=== PATIENT | male | born 1940 | race Caucasian/White ===

== ENCOUNTER 2019-04-02 07:16 | Inpatient (IN) | payer MEDICARE, OTHER ==
[~2019-04-02] VITALS: Ht 175.3 cm; Wt 86.2 kg
[~2019-04-02 07:16] MED LIST: ALBU8.5H8 IH; ALD50T PO; ASPI-611 PO; BENA40TA73 PO; CLOP75TA15 PO; GLUC1CAP7 PO; MULT-1179 PO; PRAV20TA4 PO; [UNRECOGNIZED DRUG - CODE] PO; ceFAZolin 2gm in dextrose, iso 100 ML IV ONE; famotidine 20mg tablet PO ONE; ringers solution, lacted 1,000 ML IV SCH
[2019-04-02] MEDS ORDERED: nitroPRUSSIDE SODIUM in NS 100 ML IV PRN (07:50)
[2019-04-02] MEDS ORDERED: phenylephrine inj 10 MG in normal saline 250ml IV soln 250 ML IV PRN (07:50)
[2019-04-02 08:00] VITALS: BP 141/93
[2019-04-02 08:50] LABS: BASOPHILS # (AUTO) 0.1 X10'3 (0-0.2); BASOPHILS % (AUTO) 2.1 % (0-1); EOSINOPHILS % (AUTO) 1.4 % (0-6); LYMPHOCYTES # (AUTO) 0.9 X10'3 (1.1-4.8); LYMPHOCYTES % (AUTO) 37.5 % (21-51); MEAN CORPUSCULAR HEMOGLOBIN 30.4 PG (27.0-31.0); MEAN CORPUSCULAR HGB CONC 33.1 g/dL (33.0-36.5); MEAN CORPUSCULAR VOLUME 91.9 FL (78-98); MEAN PLATELET VOLUME 8.4 FL (7.4-10.4); MONOCYTES # (AUTO) 0.6 X10'3 (0-0.9); MONOCYTES % (AUTO) 23.8 % (2-12); NEUTROPHILS # (AUTO) 0.8 X10'3 (1.8-7.7); NEUTROPHILS % (AUTO) 35.2 % (42-75); PRE OP HEMATOCRIT 40.4 % (42.0-52.0); PRE OP HEMOGLOBIN 13.4 g/dL (14.0-17.9); PRE OP PLATELET COUNT 227 X10'3 (140-440); RED CELL DISTRIBUTION WIDTH 15.4 % (11.5-14.5)
[2019-04-02 09:11] LABS: PRE OP PROTIME 10.3 SECONDS (9.0-12.0)
[2019-04-02 09:13] LABS: ALBUMIN 4.1 G/DL (3.4-5.0); ALBUMIN/GLOBULIN RATIO 1.1 (1.1-1.5); ALKALINE PHOSPHATASE 44 IU/L (46-116); BLOOD UREA NITROGEN 13 MG/DL (7-18); BUN/CREATININE RATIO 14.6 (5.4-32.0); CALCIUM 9.2 MG/DL (8.5-10.1); CHLORIDE 97 MMOL/L (99-107); CREATININE 0.89 MG/DL (0.60-1.10); PRE OP ALT 27 U/L (30-65); PRE OP ANION GAP 9 (8-16); PRE OP AST 23 U/L (10-37); PRE OP BILIRUB, TOTAL 0.7 MG/DL (0.0-1.0); PRE OP GLUCOSE 117 MG/DL (70-104); PRE OP POTASSIUM 4.7 MMOL/L (3.4-5.1); PRE OP SODIUM 131 MMOL/L (135-145); TOTAL CARBON DIOXIDE 25.5 MMOL/L (24-32); TOTAL PROTEIN 7.9 G/DL (6.4-8.2); eGFR 83 ML/MIN
--- NOTE | 2019-04-02 09:35 | NUR ---
(0900) DR LOPEZ AWARE OF ABNORMAL WBC/NA FROM 0830 LAB DRAW. SPOKE WITH PT, AND DAUGHTERS REGARDING F/U WITH ONCOLOGIST THIS WEEK. SURGERY CX R/T CURRENT LABS. LABS FAXED TO DR MARTINEZ INSTRUCTED. (934) IV DC'D WITH CANNULA INTACT AND DSG APPLIED. PT INSTRUCTED TO RESTART PLAVIX AND ALL HOME MEDS PER DR LOPEZ. PT DC'D HOME WITH AND FAMILY PRESENT TO PRIVATE CAR, ALL BELONGINGS RETURNED TO PT.
[2019-04-02 10:03] LABS: PLATELET ESTIMATE NORMAL; TOTAL CELLS COUNTED 100
== END 2019-04-02 09:35 | disposition home or self-care (01) | DRG 68 ==
LOC: PAS IN 07:16 → EDSTATUS 12:00
PROVIDERS: ADMIT Surgery; ATTEND Surgery
DX: I65.23 Occlusion and stenosis of bilateral carotid arteries (principal); J45.909 Unspecified asthma, uncomplicated; M19.90 Unspecified osteoarthritis, unspecified site; F17.210 Nicotine dependence, cigarettes, uncomplicated; I10 Essential (primary) hypertension; Z82.5 Family history of asthma and other chronic lower respiratory diseases
CPT/HCPCS: 36415; 80053; 85025; 85610; 85730; 86885; 86900; 86901; 86920; 87070; J0690; J2370; J7030; J7120

== ENCOUNTER 2020-05-13 12:10 | Outpatient (CLI) | payer MEDICARE, OTHER ==
[~2020-05-13 12:10] MED LIST changes: -ALD50T PO; +AMIO200T27 PO; +APIX5TAB5 PO; -ASPI-611 PO; -CLOP75TA15 PO; +FERR325T28 PO; +IPRA3AMP9 NEB; +OMEG-143 PO; +OMEP20TA23 PO; +ZINC220C12 PO; -[UNRECOGNIZED DRUG - CODE] PO; -ceFAZolin 2gm in dextrose, iso 100 ML IV ONE; -famotidine 20mg tablet PO ONE; -ringers solution, lacted 1,000 ML IV SCH
[2020-05-13 12:42] LABS: BASOPHILS # (AUTO) 0.1 X10'3 (0-0.2); BASOPHILS % (AUTO) 1.2 % (0-1); EOSINOPHILS # (AUTO) 0.1 X10'3 (0-0.9); EOSINOPHILS % (AUTO) 2.1 % (0-6); HEMATOCRIT 35.2 % (42.0-52.0); HEMOGLOBIN 11.6 g/dl (14.0-17.9); LYMPHOCYTES # (AUTO) 1.2 X10'3 (1.1-4.8); LYMPHOCYTES % (AUTO) 19.1 % (21-51); MEAN CORPUSCULAR HEMOGLOBIN 29.2 PG (27.0-31.0); MEAN CORPUSCULAR HGB CONC 33.1 g/dL (33.0-36.5); MEAN CORPUSCULAR VOLUME 88.2 FL (78-98); MEAN PLATELET VOLUME 8.2 FL (7.4-10.4); MONOCYTES # (AUTO) 1.2 X10'3 (0-0.9); MONOCYTES % (AUTO) 18.8 % (2-12); NEUTROPHILS # (AUTO) 3.8 X10'3 (1.8-7.7); NEUTROPHILS % (AUTO) 58.8 % (42-75); PLATELET COUNT 292 X10'3 (140-440); RED BLOOD COUNT 3.99 X10'6 (4.70-6.10); RED CELL DISTRIBUTION WIDTH 14.8 % (11.5-14.5); WHITE BLOOD COUNT 6.5 X10'3 (4.5-11.0)
[2020-05-13 12:55] LABS: ALANINE AMINOTRANSFERASE 43 U/L (12-78); ALBUMIN 4.2 G/DL (3.4-5.0); ALBUMIN/GLOBULIN RATIO 1.1 (1.1-1.5); ALKALINE PHOSPHATASE 62 IU/L (46-116); ANION GAP 9 (8-16); ASPARTATE AMINO TRANSFERASE 31 U/L (10-37); BILIRUBIN,TOTAL 0.8 MG/DL (0.1-1.0); BLOOD UREA NITROGEN 22 MG/DL (7-18); BUN/CREATININE RATIO 17.3 (5.4-32.0); CALCIUM 9.2 MG/DL (8.5-10.1); CHLORIDE 98 MMOL/L (99-107); CREATININE 1.27 MG/DL (0.60-1.10); GLUCOSE 103 MG/DL (70-104); POTASSIUM 4.6 MMOL/L (3.5-5.1); SODIUM 134 MMOL/L (135-145); TOTAL CARBON DIOXIDE 27.2 MMOL/L (24-32); eGFR 55 ML/MIN
[2020-05-14] MEDS ORDERED: HYDR12.55 PO (11:35)
[2020-05-14] MEDS ORDERED: SPIR50TA5 PO (11:35)
== END 2020-05-13 23:59 | disposition home or self-care (01) ==
LOC: LAB 12:10
PROVIDERS: ATTEND Surgery
DX: Z01.818 Encounter for other preprocedural examination (principal); I65.21 Occlusion and stenosis of right carotid artery; Z11.59 Encounter for screening for other viral diseases
CPT/HCPCS: 36415; 80053; 85025; U0003

== ENCOUNTER 2020-11-29 15:11 | Inpatient (IN) | payer MEDICARE, OTHER ==
[2020-11-29] VITALS (11 sets, daily range): BP systolic 130–247; BP diastolic 36–84
[~2020-11-29] VITALS: Ht 175.3 cm; Wt 93.8 kg
[~2020-11-29 15:11] MED LIST changes: +DILT240C90 PO; -FERR325T28 PO; +HYDR12.55 PO; +SPIR50TA5 PO
[2020-11-29] MEDS ORDERED: diphenhydrAMINE 25mg capsule PO PRN (16:00)
[2020-11-29] MEDS ORDERED: LORazepam 0.5 MG tablet PO PRN (16:00)
--- NOTE | 2020-11-29 16:20 | NUR ---
DR CYNDY VICTORIA, REPORTED PT'S ELEVATED BP 220'S/70'S & 80'S, HYDRALAZINE ORDERED. Addendum: 11/29/20 at 1936 by Melissa Ruth RN Amended: Links added.
[2020-11-29] MEDS ORDERED: hydrALAZINE 20mg/ml inj. IV ONE (16:45)
[2020-11-29] MEDS: normal saline 1,000 ML IV SCH (17:06)
[2020-11-29] MEDS ORDERED: BENA40TA73 PO (18:01)
[2020-11-29] MEDS ORDERED: FERR-119 PO (18:07)
[2020-11-29] MEDS ORDERED: CLOP75TA15 PO (18:08)
[2020-11-29] MEDS ORDERED: ALBU18HF2 INH (18:09)
[2020-11-29] MEDS ORDERED: LIDOcaine 1% (10mg/ml)w/preservative injection 20ml MDV ONE ×2 (20:27→20:54)
[2020-11-29] MEDS ORDERED: iohexol 350 MG/1 ML 200ml bottle ONE (20:27)
[2020-11-29] MEDS ORDERED: DOPamine 400mg/D5W 250ml 250 ML IV ONE (20:27)
[2020-11-29] MEDS ORDERED: atropine 0.1mg/ml 10ml syringe ONE (20:27)
[2020-11-29] MEDS ORDERED: heparin 1,000unit/ml 10ml vial 10 ML ONE (20:27)
[2020-11-29] MEDS ORDERED: fentaNYL/PF 50MCG/1 ML 2ML syringe ONE (20:54)
[2020-11-29] MEDS ORDERED: midazolam 2 mg/2 ml injection ONE (20:54)
[2020-11-29] MEDS ORDERED: clopidogrel 300mg tablet ONE (21:31)
[2020-11-29] MEDS ORDERED: hydrALAZINE 20mg/ml inj. IV PRN (23:00)
[2020-11-29] MEDS ORDERED: DOPamine 400mg/D5W 250ml 250 ML IV SCH (23:00)
[2020-11-29] MEDS ORDERED: pseudoephedrine 30mg tablet PO PRN (23:00)
[2020-11-29] MEDS ORDERED: HYDROcodone/acetaminophen 10/325mg tab PO PRN (23:00)
[2020-11-29] MEDS ORDERED: OXAZEpam 15mg capsule PO PRN (23:00)
[2020-11-29] MEDS ORDERED: HYDROcodone/acetaminophen 5mg/325mg tablet PO PRN (23:00)
[2020-11-29] MEDS ORDERED: albuterol 2.5 MG/3 ML nebule NEB PRN (23:10)
[2020-11-29 23:33] LABS: HEMOGLOBIN 11.9 g/dl (14.0-17.9); RED BLOOD COUNT 3.66 X10'6 (4.70-6.10)
[2020-11-29 23:35] LABS: BASOPHILS # (AUTO) 0.1 X10'3 (0-0.2); BASOPHILS % (AUTO) 0.8 % (0-1); EOSINOPHILS # (AUTO) 0.1 X10'3 (0-0.9); EOSINOPHILS % (AUTO) 1.3 % (0-6); HEMATOCRIT 35.8 % (42.0-52.0); LYMPHOCYTES # (AUTO) 1.3 X10'3 (1.1-4.8); LYMPHOCYTES % (AUTO) 15.8 % (21-51); MEAN CORPUSCULAR HEMOGLOBIN 32.5 PG (27.0-31.0); MEAN CORPUSCULAR HGB CONC 33.2 g/dL (33.0-36.5); MEAN CORPUSCULAR VOLUME 97.7 FL (78-98); MEAN PLATELET VOLUME 8.8 FL (7.4-10.4); MONOCYTES # (AUTO) 0.9 X10'3 (0-0.9); MONOCYTES % (AUTO) 10.9 % (2-12); NEUTROPHILS # (AUTO) 5.7 X10'3 (1.8-7.7); NEUTROPHILS % (AUTO) 71.2 % (42-75); PLATELET COUNT 209 X10'3 (140-440)
--- NOTE | 2020-11-29 23:39 | NUR ---
Small area of blood on gauze to right groin minx closure has enlarged very slightly and closure remains soft without induration. 5 lb sand bag placed on site. Addendum: 11/29/20 at 2343 by Rishi Nix RN Amended: Links added.
[2020-11-29 23:40] LABS: ALBUMIN 3.4 G/DL (3.4-5.0); ANION GAP 6 (8-16); BLOOD UREA NITROGEN 17 MG/DL (7-18); BUN/CREATININE RATIO 17.7 (5.4-32.0); CALCIUM 8.7 MG/DL (8.5-10.1); CHLORIDE 102 MMOL/L (99-107); CREATININE 0.96 MG/DL (0.60-1.10); GLUCOSE 107 MG/DL (70-104); SODIUM 136 MMOL/L (135-145); TOTAL CARBON DIOXIDE 27.6 MMOL/L (24-32); eGFR 76 ML/MIN
[2020-11-30] VITALS (7 sets, daily range): BP systolic 145–182; BP diastolic 50–85
[2020-11-30 00:48] LABS: CHOL/HDL RATIO 2.5 (0.00-4.99); CHOLESTEROL 151 MG/DL (0-200); HDL CHOLESTEROL 60 MG/DL (35-60); LDL CHOLESTEROL 86 MG/DL (50-100); TRIGLYCERIDES 23 MG/DL (20-135)
[2020-11-30] MEDS: normal saline 1,000 ML IV SCH (02:26)
--- NOTE | 2020-11-30 06:22 | NUR ---
Problems reprioritized. Patient report given, questions answered & plan of care reviewed with SULEIMAN. Addendum: 11/30/20 at 0622 by Rishi Nix RN Amended: Links added.
--- NOTE | 2020-11-30 06:30 | NUR ---
Patient in room MED 309. I have received report from Trung ROSALES and had the opportunity to ask questions and assume patient care.
[2020-11-30] MEDS ORDERED: pantoprazole 40mg Tablet.DR PO SCH (07:30)
[2020-11-30] MEDS ORDERED: clopidogrel 75mg tablet PO SCH (08:00)
[2020-11-30] MEDS ORDERED: atorvastatin 10mg tablet PO SCH (08:00)
[2020-11-30] MEDS ORDERED: lisinopril 20mg tablet PO SCH (08:00)
[2020-11-30] MEDS ORDERED: ferrous sulfate 325mg tablet PO SCH (08:00)
[2020-11-30] MEDS ORDERED: apixaban 5mg tablet PO SCH (08:00)
[2020-11-30] MEDS ORDERED: OMEGA-3/DHA/EPA/FISH OIL 1 EACH CAPSULE.DR PO SCH (08:00)
[2020-11-30] MEDS ORDERED: multivitamins, therapeutics tablet PO SCH (08:00)
[2020-11-30] MEDS ORDERED: amiodarone 200mg tablet PO SCH (08:00)
--- NOTE | 2020-11-30 08:15 | NUR ---
Received call from Dr. Rice. He stated it was okay to discharge the patient home and resume all home medications.
--- NOTE | 2020-11-30 09:38 | NUR ---
Patient discharged home in stable condition. IVs removed, cannulas intact. Vital signs stable. No hematoma, blood on dressing, but no more than outlined last night. All discharge instructions reviewed with no further questions. Patient taken downstairs via wheelchair with all belongings on person. Razor delivered by daughter picked up at front end developer.
--- NOTE | 2020-12-01 15:19 | NUR ---
CASE MANAGEMENT DISCHARGE FOLLOW UP: Spoke with pt's , Thomas, via telephone as pt is currently resting. She states that the pt has said that he has not pain at access site, states no bleeding, no swelling, no redness, no s/sx of infection. She says there is some bruising, but like his previous heart caths. She states that patient has some muscular pain in his side that started 4 days prior to admission to hospital and wants to know what medications pt can take for discomfort. Advised that they contact pt's PCP or Dr Rice's office for request, she verbalizes understanding. Verbalizes understanding of s/sx requiring further evaluation/emergent assistance. Thomas verbalizes compliance with MD discharge instructions.She verbalizes understanding of the importance in making/keeping follow-up appointments, states pt has an appointment in February but thinks Dr Rice probably wants to see him before then, she is trying to get him an earlier appointment. She states no further questions/concerns at this time.
== END 2020-11-30 09:25 | disposition home or self-care (01) | DRG 36 ==
LOC: SSTAY O 15:11 → MED 3N 21:55
PROVIDERS: ADMIT Internal Medicine Interventional Cardiology; ATTEND Internal Medicine Interventional Cardiology
PROC: 037K3DZ Dilation of Right Internal Carotid Artery with Intraluminal Device, Percutaneous Approach (ICD-10-PCS; principal; 2020-11-29)
DX: I65.23 Occlusion and stenosis of bilateral carotid arteries (principal); G47.33 Obstructive sleep apnea (adult) (pediatric); I10 Essential (primary) hypertension; E78.00 Pure hypercholesterolemia, unspecified; I48.91 Unspecified atrial fibrillation; C44.90 Unspecified malignant neoplasm of skin, unspecified
CPT/HCPCS: 36415; 37215; 80048; 80061; 85025; 85610; 87081; 93005; 99152; 99153; A4620; A6258; C1725; C1760; C1769; C1876; C1884; C1887; C1894; G0378; J0360; J0461; J1265; J1644; J2001; J2250; J3010; J7030; Q0163; Q9967

== ENCOUNTER 2021-09-02 15:48 | Emergency (ER) | payer MEDICARE, OTHER ==
[~2021-09-02] VITALS: Ht 175.3 cm; Wt 77.3 kg
[~2021-09-02 15:48] MED LIST changes: +ALBU18HF2 INH; -ALBU8.5H8 IH; +CLOP75TA15 PO; -DILT240C90 PO; +FERR-119 PO; -GLUC1CAP7 PO; -HYDR12.55 PO; -IPRA3AMP9 NEB; -SPIR50TA5 PO; -ZINC220C12 PO
[2021-09-02 15:55] VITALS: BP 173/63
[2021-09-02] MEDS ORDERED: normal saline 1000ML IV soln IVB ONE (15:55)
[2021-09-02 16:18] LABS: MEAN CORPUSCULAR HGB CONC 33.1 g/dL (33.0-36.5); RED BLOOD COUNT 3.54 X10'6 (4.70-6.10)
[2021-09-02 16:20] LABS: HEMATOCRIT 35.9 % (42.0-52.0); HEMOGLOBIN 11.9 g/dl (14.0-17.9); MEAN CORPUSCULAR HEMOGLOBIN 33.6 PG (27.0-31.0); MEAN CORPUSCULAR VOLUME 101.5 FL (78-98); MEAN PLATELET VOLUME 8.2 FL (7.4-10.4); PLATELET COUNT 481 X10'3 (140-440); RED CELL DISTRIBUTION WIDTH 14.4 % (11.5-14.5); WHITE BLOOD COUNT 7.6 X10'3 (4.5-11.0)
[2021-09-02 16:34] LABS: PARTIAL THROMBOPLASTIN TIME 29 SECONDS (22-32)
[2021-09-02 16:42] LABS: ALANINE AMINOTRANSFERASE 588 U/L (12-78); ALBUMIN 2.9 G/DL (3.4-5.0); ANION GAP 11 (8-16); ASPARTATE AMINO TRANSFERASE 666 U/L (10-37); BLOOD UREA NITROGEN 25 MG/DL (7-18); BUN/CREATININE RATIO 13.8 (5.4-32.0); CHLORIDE 93 MMOL/L (99-107); CREATININE 1.81 MG/DL (0.60-1.10); GLUCOSE 206 MG/DL (70-104); LIPASE 50 U/L (73-393); POTASSIUM 3.5 MMOL/L (3.5-5.1); SODIUM 130 MMOL/L (135-145); TOTAL CARBON DIOXIDE 26.3 MMOL/L (24-32); eGFR 36 ML/MIN
[2021-09-02 16:43] LABS: ALBUMIN/GLOBULIN RATIO 0.7 (1.1-1.5); ALKALINE PHOSPHATASE 1109 IU/L (46-116); TOTAL PROTEIN 7.1 G/DL (6.4-8.2)
[2021-09-02 17:14] LABS: PLATELET ESTIMATE INCREASED; TOTAL CELLS COUNTED 100
[2021-09-02 17:15] LABS: HYPERSEGMENTED NEUTROPHILS FEW; TARGET CELLS 3+
[2021-09-02] MEDS ORDERED: AMLO2.5T2 PO (18:49)
[2021-09-02 19:31] LABS: COLOR,URINE YELLOW (Yellow); UA COLLECTION TYPE NON-SPECIFIED
[2021-09-02 19:34] LABS: CLARITY,URINE SLIGHTLY CLOUDY (Clear)
[2021-09-02 19:35] LABS: BACTERIA,URINE FEW /HPF (Neg); GLUCOSE, URINE NEGATIVE (Neg); KETONES,URINE NEGATIVE (Neg); LEUKOCYTE ESTERASE ,URINE NEGATIVE (Neg); NITRITES, URINE NEGATIVE (Neg); OCCULT BLOOD,URINE NEGATIVE (Neg); PROTEIN,URINE NEGATIVE (Neg); RBC,URINE 0-2 /HPF (0-2); SQUAMOUS EPITHELIAL CELL,UR MODERATE /LPF (FEW); UROBILINOGEN,URINE 0.2 E.U/dL (0.2-1.0); WBC,URINE 0-4 /HPF (0-4)
[2021-09-02 19:36] LABS: CAL OXALATE CRYSTALS FEW /HPF (NEGATIVE)
[2021-09-04 13:08] LABS: CARCINOEMBRYONIC ANTIGEN 8.8 ng/mL (0.0-4.7)
== END 2021-09-02 20:57 | disposition home or self-care (01) ==
LOC: ER 15:49
DX: K86.9 Disease of pancreas, unspecified (principal); R16.0 Hepatomegaly, not elsewhere classified; E80.6 Other disorders of bilirubin metabolism; R10.32 Left lower quadrant pain; R53.1 Weakness; R11.0 Nausea; I10 Essential (primary) hypertension; J45.909 Unspecified asthma, uncomplicated; Z95.0 Presence of cardiac pacemaker; Z72.89 Other problems related to lifestyle; Z91.013 Allergy to seafood; Z79.899 Other long term (current) drug therapy
CPT/HCPCS: 36415; 71250; 74176; 76700; 80053; 81001; 82140; 82378; 83690; 84145; 85007; 85025; 85610; 85730; 86301; 99285; J7030

== ENCOUNTER 2021-09-07 11:37 | Day surgery (SDC) | payer MEDICARE, OTHER ==
[2021-09-07] VITALS (8 sets, daily range): BP systolic 139–199; BP diastolic 65–80
[~2021-09-07] VITALS: Ht 175.3 cm; Wt 77.3 kg
[~2021-09-07 11:37] MED LIST changes: +AMLO2.5T2 PO; -BENA40TA73 PO; -FERR-119 PO
[2021-09-07] MEDS ORDERED: fentaNYL/PF 50MCG/1 ML 2ML syringe ONE (11:57)
[2021-09-07] MEDS ORDERED: MIDAZolam 1 MG/ML 5ML VIAL ONE (11:57)
[2021-09-07] MEDS ORDERED: LIDOcaine Viscous 15ml cup ONE (11:58)
[2021-09-07] MEDS ORDERED: diphenhydrAMINE 50 mg/ml inj ONE (11:58)
[2021-09-07] MEDS ORDERED: levoFLOXACIN-Levaquin 500mg/D5 100 ML IV ONE (11:58)
[2021-09-07] MEDS ORDERED: glucagon, human recombinant 1mg kit ONE (11:59)
[2021-09-07] MEDS ORDERED: iohexol 300 MG/1 ML 50ml polymer ONE (11:59)
[2021-09-07 12:36] LABS: HEMATOCRIT 35.3 % (42.0-52.0); HEMOGLOBIN 11.4 g/dl (14.0-17.9); WHITE BLOOD COUNT 7.7 X10'3 (4.5-11.0)
[2021-09-07 12:38] LABS: MEAN CORPUSCULAR HGB CONC 32.1 g/dL (33.0-36.5); MEAN CORPUSCULAR VOLUME 102.6 FL (78-98); MEAN PLATELET VOLUME 8.3 FL (7.4-10.4); PLATELET COUNT 489 X10'3 (140-440); RED BLOOD COUNT 3.44 X10'6 (4.70-6.10); RED CELL DISTRIBUTION WIDTH 14.7 % (11.5-14.5)
[2021-09-07] MEDS ORDERED: BENA40TA45 PO (12:41)
[2021-09-07 13:09] LABS: ALANINE AMINOTRANSFERASE 521 U/L (12-78); ALBUMIN 2.6 G/DL (3.4-5.0); ANION GAP 13 (8-16); ASPARTATE AMINO TRANSFERASE 542 U/L (10-37); BILIRUBIN,TOTAL 10.4 MG/DL (0.1-1.0); BLOOD UREA NITROGEN 28 MG/DL (7-18); CALCIUM 9.3 MG/DL (8.5-10.1); CHLORIDE 98 MMOL/L (99-107); GLUCOSE 160 MG/DL (70-104); SODIUM 133 MMOL/L (135-145); TOTAL CARBON DIOXIDE 22.5 MMOL/L (24-32); eGFR 49 ML/MIN
[2021-09-07 13:10] LABS: ALBUMIN/GLOBULIN RATIO 0.6 (1.1-1.5); ALKALINE PHOSPHATASE 1127 IU/L (46-116); POTASSIUM 3.8 MMOL/L (3.5-5.1); TOTAL PROTEIN 6.8 G/DL (6.4-8.2)
[2021-09-07 13:13] LABS: TOTAL CELLS COUNTED 100
[2021-09-07 13:14] LABS: PLATELET ESTIMATE INCREASED; TARGET CELLS 2+
[2021-09-08] MEDS ORDERED: PER5325T PO (10:34)
== END 2021-09-07 15:17 | disposition home or self-care (01) ==
LOC: GI LAB 11:37
PROVIDERS: ATTEND Internal Medicine Gastroenterology
DX: K83.1 Obstruction of bile duct (principal); K83.8 Other specified diseases of biliary tract; I25.10 Atherosclerotic heart disease of native coronary artery without angina pectoris; I10 Essential (primary) hypertension; I48.91 Unspecified atrial fibrillation; Z98.52 Vasectomy status; Z91.018 Allergy to other foods; Z91.013 Allergy to seafood; Z20.822 Contact with and (suspected) exposure to COVID-19; Z79.899 Other long term (current) drug therapy; Z82.49 Family history of ischemic heart disease and other diseases of the circulatory system; Z83.6 Family history of other diseases of the respiratory system
CPT/HCPCS: 43274; 74328; 80053; 85025; 87635; 99153; C1769; C2625; C9803; G0500; J1200; J1610; J1956; J2250; J3010; J7040; Q9967; Z7512; Z7610; 43261; 43262; 85007; 99152; A4620

== ENCOUNTER 2021-09-08 10:21 | Emergency (ER) | payer MEDICARE, OTHER ==
[~2021-09-08] VITALS: Ht 175.3 cm; Wt 175.0 kg
[~2021-09-08 10:21] MED LIST changes: -AMLO2.5T2 PO; +BENA40TA45 PO
[2021-09-08 10:25] VITALS: BP 99/48
[2021-09-08] MEDS ORDERED: PER5325T PO (10:34)
[2021-09-08] MEDS ORDERED: oxyCODONE/APAP 5-325mg tablet PO ONE (10:35)
== END 2021-09-08 10:51 | disposition home or self-care (01) ==
LOC: ER 10:22
DX: R10.84 Generalized abdominal pain (principal); K86.89 Other specified diseases of pancreas; R17 Unspecified jaundice; I10 Essential (primary) hypertension; J45.909 Unspecified asthma, uncomplicated; Z95.0 Presence of cardiac pacemaker; Z72.89 Other problems related to lifestyle; Z91.013 Allergy to seafood; Z79.899 Other long term (current) drug therapy
CPT/HCPCS: 99283